=== PATIENT | male | born 1995 | race Caucasian/White ===

== ENCOUNTER 2019-03-17 12:32 | Emergency (ER) | payer MEDICARE ==
[~2019-03-17] VITALS: Ht 167.6 cm; Wt 65.9 kg
[2019-03-17 12:37] VITALS: Ht 167.6 cm; Wt 65.9 kg
[2019-03-17] MEDS ORDERED: MUPIROCIN22 GM TOPICAL (13:55)
[2019-03-17] MEDS ORDERED: KEFLEX500 MG PO (13:55)
[2019-03-17 14:13] VITALS: BP 120/74
== END 2019-03-17 14:13 | disposition home or self-care (01) ==
LOC: D.ER 12:32
DX: M79.675 Pain in left toe(s) (principal); L03.032 Cellulitis of left toe

== ENCOUNTER 2019-03-30 10:53 | Day surgery (SDC) | payer MEDICARE ==
[~2019-03-30] VITALS: Ht 177.8 cm; Wt 63.5 kg
[~2019-03-30 10:53] MED LIST: KEFLEX500 MG PO; MELATONIN 3 MG1 TAB PO; MUPIROCIN22 GM TOPICAL
[2019-03-30 11:53] VITALS: BP 146/90; Ht 177.8 cm; Wt 63.5 kg
--- NOTE | 2019-03-30 13:45 | NUR ---
REC'D FROM SURGERY. FAMILY AT BEDSIDE. RESTING WITH EYES CLOSED. DRESSING CDI TO GREAT TOE.
--- NOTE | 2019-03-30 14:17 | NUR ---
BEGINNING TO AROUSE. EATING A FEW ICE CHIPS. COLA AND CHOCOLATE PUDDING BROUGHT TO PATIENT. FAMILY AT BEDSIDE. DRESSING CDI TO GREAT TOE.
--- NOTE | 2019-03-30 14:35 | NUR ---
TOLERATING FLUIDS. IV DC'D WITH CATHETER INTACT. WRITTEN AND VERBAL DC INST. GIVEN TO PARENT. VERBALIZED UNDERSTANDING.
--- NOTE | 2019-03-30 14:55 | NUR ---
EPISODE OF N/V. LINEN CHANGED AND SOMEONE BRINGING PATIENT MORE CLOTHES. SPOKE WITH DR HURST. ORDER RECEIVED FOR ZOFRAN 8MG ODT X1. FAMILY AT BESIDE.
--- NOTE | 2019-03-30 15:15 | NUR ---
ZOFRAN 8MG ODT ADMINSTERED X1 PER ORDERS.
--- NOTE | 2019-03-30 15:45 | NUR ---
CONTINUES TO HAVE EPISODES OF DRY HEAVES. RELATES HE FEELS BETTER HOWEVER THEN SAYS HE DOESN'T FEEL BETTER. COGNITIVELY IMPAIRED AND DIFFICULTY WITH ANSWERING QUESTIONS.
--- NOTE | 2019-03-30 16:20 | NUR ---
PT RELATES HE IS FEELING BETTER AND WANTS TO GO HOME. DC'D HOME WITH PARENT VIA PRIVATE VEHICLE. TAKEN TO VEHICLE VIA WC. STABLE AT TIME OF DC.
== END 2019-03-30 16:20 | disposition home or self-care (01) ==
LOC: D.OPS 10:53 → D.PAN 13:00 → D.OPS 16:20
PROVIDERS: ATTEND Podiatrist Foot & Ankle Surgery
DX: L60.0 Ingrowing nail (principal); F84.0 Autistic disorder; Z01.812 Encounter for preprocedural laboratory examination

== ENCOUNTER 2019-08-17 23:17 | Emergency (ER) | payer MEDICARE ==
[~2019-08-17] VITALS: Ht 177.8 cm; Wt 61.4 kg
[2019-08-17 23:19] VITALS: Ht 177.8 cm; Wt 61.4 kg
[2019-08-18] MEDS ORDERED: ZOLOFT25 MG PO (01:08)
[2019-08-18] MEDS ORDERED: TRAZODONE HCL150 MG PO (01:08)
[2019-08-18] MEDS ORDERED: PEPCID40 MG PO (01:15)
[2019-08-18] MEDS ORDERED: ZYPREXA10 MG PO (01:15)
[2019-08-18 01:34] LABS: APPEARANCE CLEAR (CLEAR); BILIRUBIN NEGATIVE (NEGATIVE); COLOR YELLOW (YELLOW); GLUCOSE NEGATIVE (NEGATIVE); KETONE NEGATIVE (NEGATIVE); NITRITE NEGATIVE (NEGATIVE); PROTEIN NEGATIVE (NEGATIVE); SPECIFIC GRAVITY 1.005 (1.005-1.020); UROBILINOGEN NORMAL (NORMAL)
[2019-08-18 01:40] LABS: UDS - AMPHET NEGATIVE QUAL (NEGATIVE); UDS - BARB NEGATIVE QUAL (NEGATIVE); UDS - BENZO NEGATIVE QUAL (NEGATIVE); UDS - COCAINE NEGATIVE QUAL (NEGATIVE); UDS - OPIATE NEGATIVE QUAL (NEGATIVE); UDS - PCP NEGATIVE QUAL (NEGATIVE); UDS - THC NEGATIVE QUAL (NEGATIVE)
[2019-08-18 01:44] LABS: BASOPHILS 0.2 % (0-2); EOSINOPHILS 1.4 % (0-7); HEMATOCRIT 43.6 % (42.0-54.0); HEMOGLOBIN 14.7 g/dL (13.5-17.5); IMMATURE GRANULOCYTES 0.1 % (0-5); LYMPHOCYTES 33.1 % (15-50); MCH 30.4 pg (26.0-34.0); MCHC 33.7 g/dL (31.0-37.0); MCV 90.1 fL (80.0-100.0); MEAN PLATELET VOLUME 9.6 fL (7.4-10.4); MONOCYTES 10.9 % (2-11); NEUTROPHILS 54.3 % (40-80); PLATELET COUNT 261 10x3/uL (130-400); RBC 4.84 10x6/uL (4.20-6.10); WBC 8.7 10x3/uL (4.8-10.8)
[2019-08-18 01:55] LABS: ALBUMIN 4.2 g/dL (3.4-5.0); ALKALINE PHOSPHATASE 89 U/L (46-116); ALT (SGPT) 31 U/L (10-68); BILIRUBIN - TOTAL 0.49 mg/dL (0.2-1.3); CALC OSMOLALITY 281 mosm/kg (275-300); CALCIUM 9.2 mg/dL (8.5-10.1); CARBON DIOXIDE 31.1 mmol/L (21.0-32.0); CHLORIDE - SERUM 103 mmol/L (98-107); GLUCOSE 97 mg/dL (74-106); MAGNESIUM - SERUM 2.1 mg/dL (1.8-2.4); POTASSIUM - SERUM 4.3 mmol/L (3.5-5.1); SODIUM 142 mmol/L (136-145); UREA NITROGEN 11 mg/dL (7-18); eGFR NON AFRICAN AMERICAN > 90 mL/min (90-120)
[2019-08-18 03:06] VITALS: BP 119/81
== END 2019-08-18 03:06 | disposition home or self-care (01) ==
LOC: D.ER 23:17
PROVIDERS: Family Medicine
DX: F79 Unspecified intellectual disabilities (principal); Z91.83 Wandering in diseases classified elsewhere